=== PATIENT | female | born 1995 | race Caucasian/White ===

== ENCOUNTER 2019-12-13 15:28 | Outpatient (CLI) | payer OTHER, SELFPAY ==
--- NOTE | ~2019-12-13 | US_ITS ---
EXAMINATION: US OB >= 14 weeks Fetus DATE: 12/13/2019 16:21 INDICATION: Second trimester anatomic survey TECHNIQUE: Real-time ultrasound of the pelvis was performed. COMPARISON: None. FINDINGS: There is a single living fetus in breech presentation. The placenta is anterior and 9.6 cm from the i nternal cervical os. heart rate is 139 beats per minute (bpm). cardiac activity and feta l movement are noted. The amniotic fluid index is subjectively normal. The stomach is not clearly demonstrated. The following anatomy was identified as normal: 4 chamber heart 3 vessel cord cord insertion kidneys urinary bladder spine diaphragm ventricles cisterna magna cerebellum The following biometric data were obtained: Biparietal diameter (BPD): 5.72 cm; head circumference (HC): 1.9 cm; abdominal circumference (AC): 19 .1 cm; femur length (FL): 3.9 cm. The femoral length to biparietal diameter ratio is greater than two standard deviations below the clay n. These measurements are otherwise concordant. Estimated weight is 593 g +/- 89 g, which correlates with the 35th percentile when 04/06/2020 i s used as estimated date of delivery. As single measurements, these parameters are each equal to the following estimated gestational ages w ith ranges of +/- 2 standard deviations: BPD: 23 weeks 3 days +/- 1 weeks 5 days. HC: 24 weeks 0 days +/- 1 weeks 3 days. AC: 23 weeks 6 days +/- 2 weeks 0 days. FL: 22 weeks 5 days +/- 1 weeks 6 days. estimated gestational age based solely on measurements from this exam is 23 weeks 4 days +/- 1 weeks 5 days. IMPRESSION: 1. Single living fetus in breech presentation. 2. Estimated weight is 593 g +/- 89 g, which correlates with the 35th percentile when 0 is used as estimated date of delivery. 3. Stomach not well demonstrated. 4. Femoral length to biparietal diameter ratio greater than two standard deviations below the mean. Reviewed, dictated and finalized at location A. IMPRESSION: 1. Single living fetus in breech presentation. 2. Estimated weight is 593 g +/- 89 g, which correlates with the 35th per centile when 04/06/2020 is used as estimated date of delivery. 3. Stomach not well demonstrated. 4. Femoral length to biparietal diameter ratio greater than two standard deviat ions below the mean.
== END 2019-12-13 15:29 | disposition home or self-care (01) ==
LOC: ANHIMG 15:34
PROVIDERS: Visit Provider Obstetrics & Gynecology
DX: Z34.92 Encounter for supervision of normal pregnancy, unspecified, second trimester (principal)
CPT/HCPCS: 76805

== ENCOUNTER 2020-01-30 15:15 | Outpatient (CLI) | payer OTHER, SELFPAY ==
--- NOTE | ~2020-01-30 | US_ITS ---
EXAMINATION: US OB follow up DATE: 01/30/2020 16:17 INDICATION: Catheter for supervision of normal during third trimester. TECHNIQUE: Real-time ultrasound of the pelvis was performed. The interpreting radiologist was not pre sent for the study. COMPARISON: None. FINDINGS: There is a single living fetus in vertex presentation. The placenta is anterior and not low-lying. T here is a 4.8 x 3.0 x 1.2 cm hypoechoic likely subchorionic hematoma along the inferior margin of the placenta. heart rate is 132 beats per minute (bpm). The amniotic fluid index is 16.6 cm, whic h is normal. There is funneling at the internal cervical os with cervical length measuring 2.7 cm. The following biometric data were obtained: BPD: 7.7 cm -> 31 weeks 0 days Head circumference: 28.8 cm -> 31 weeks 4 days Abdominal circumference: 26.4 cm -> 30 weeks 4 days Femur length: 5.5 cm -> 28 weeks 6 days These measurements are concordant. Head circumference to abdominal circumference ratio: 1.09 (normal range 0.97-1.18). Estimated weight: 1517 g (+/-) 228 g. or 3 lbs. 6 oz. (+/-) 8 oz. IMPRESSION: 1. Single living fetus in vertex presentation with heart rate of 132 bpm. 2. 4.8 x 3.0 x 1.2 cm subchorionic hematoma along the inferior margin of the anterior placenta. 3. Normal amniotic fluid index of 16.6 cm. 4. Funneling at the internal cervical os with cervical length measuring 2.7 cm. 5. Estimated weight is 28th percentile by Hadlock criteria when 04/06/2020 is used as the estim ated date of delivery (KENYATTA). Please correlate with clinical information or earlier ultrasounds for mo st accurate KENYATTA. Reviewed, dictated and finalized at location A. IMPRESSION: 1. Single living fetus in vertex presentation with heart rate of 132 bpm. 2. 4.8 x 3.0 x 1.2 cm subchorionic hematoma along the inferior margin of the an terior placenta. 3. Normal amniotic fluid index of 16.6 cm. 4. Funneling at the internal cervical os with cervical length measuring 2.7 cm. 5. Estimated weight is 28th percentile by Hadlock criteria when 0 is used as the estimated date of delivery (KENYATTA). Please correlate with clinic al information or earlier ultrasounds for most accurate KENYATTA.
== END 2020-01-30 15:16 | disposition home or self-care (01) ==
LOC: ANHIMG 15:20
PROVIDERS: Visit Provider Obstetrics & Gynecology
DX: Z34.91 Encounter for supervision of normal pregnancy, unspecified, first trimester (principal); Z3A.00 Weeks of gestation of pregnancy not specified
CPT/HCPCS: 76816

== ENCOUNTER 2020-02-15 18:45 | Observation (INO) | payer OTHER, SELFPAY ==
[2020-02-15 19:43] LABS: Add Urine Microscopic? YES; Appearance Urine Cloudy (Clear); Bacteria Urine 1+ /hpf; Bilirubin Urine Negative (Negative); Color Urine Yellow (Yellow); Glucose Urine UA Negative (Negative); Ketones Urine Trace mg/dL (Negative); Leukocyte Esterase Ur 3+ LEU/UL (Negative); Mucus Urine Few /lpf; Nitrate Urine Negative (Negative); Protein Urine Negative (Negative); Specific Grav Ur 1.011 (1.001-1.035); Squamous Epithelial Cell Urine Many /hpf (Few); Urobilinogen Urine Negative mg/dL (<2.0); WBC Urine 31-50 /hpf
[2020-02-15 19:48] LABS: Blood Urine Negative (Negative)
[2020-02-15 19:54] VITALS: BP 112/66; PULSE 81
[2020-02-15 20:00] VITALS: TEMP 36.8
--- NOTE | 2020-02-15 20:18 | P.HP_ITS ---
H&P: HPI History of Present Illness Date/Time: 02/15/20 20:18 Chief complaint: Contractions Narrative: Ramona Thornton is a 24 yo @ 32.5wks who presented with contractions and yellow/green discharge. She reports feeling 4-5 contractions an hour. However, once placed on the monitor she was found to be nikita q2- 3minutes. She denies vaginal bleeding. ROM + was performed and ruled out rupture of membranes. Cervix was checked and she was found to be 3cm dilated. She reports a h/o UTI's and has some urinary complaints. She has been having regular care with Dr. Rivera in [place], [place]. Her is complicated by: - h/o PTB @ 36wks -- on progesterone 200mcg (procardia 30mg prescribed by primary provider but pt has not started) - h/o mild intermittent asthma -- albuterol PRN - h/o depression on escitalopram (h/o admission in 2011) Review of Systems Constitutional: Constitutional: Denies chills and Denies fatigue Eyes: Eyes: Denies blurry vision Cardiovascular: Cardiovascular: Denies chest pain and Denies palpitations Respiratory: Respiratory: Denies cough and Denies dyspnea Gastrointestinal: Gastrointestinal: Reports abdominal pain, Denies nausea and Denies vomiting Genitourinary: Genitourinary: Reports vaginal discharge Neurologic: Denies headache(s) Meds Home Medications and Allergies Allergies Allergy/AdvReac Type Severity Reaction Status Date / Time No Known Allergies Allergy Unverified 10/06/12 19:37 Vital Signs Vital Signs - 24 hr 02/15/20 19:54 Pulse Rate 81 Blood Pressure 112/66 Exam Const: General: comfortable and no acute distress Resp: Effort & Inspection: normal respiratory effort Cardio: Rate: regular rate : Other: FHT's: 140's/ mod janey/ + accels/ no decels - cat 1 TOCO: ctx's q2min Cervix: 3/ thick/ high Membranes: intact; ROM + negative Presentation: cephalic confirmed on bedside US Skin: General skin exam: normal color Neuro: Speech: normal speech Extrem: General: normal to inspection Psych: Mental Status: mental status grossly normal Affect: normal affect H&P: Results Labs Labs: Urine 02/15/20 Range/Units 19:05 Urine Color Yellow (Yellow) Urine Appearance Cloudy H (Clear) Urine pH 6.0 (5.0-9.0) Ur Specific [place] 1.011 (1.001-1.035) Urine Protein Negative (Negative) mg/dL Urine Glucose (UA) Negative (Negative) mg/dL Assessment and Plan Assessment and plan (1) contractions: Code(s): O47.9 - False labor, unspecified Status: Acute Assessment and Plan: - Cervix 3cm dilated w/ contractions q2min and h/o PTB - heart tones reassuring - [facility] maternal transport team contacted and I spoke with [facility] resident, Dr. Hoffman - Plan to give betamethasone 12mg IM, ampicillin 2g loading, and magnesium sulfate 4g loading - Will transport to [facility] via Maternal Transport team
[2020-02-15] MEDS: BETAMETHASONE SOD PHOS/ACETATE 30 MG/5 ML VIAL 12 MG IM (21:15)
[2020-02-15 21:30] VITALS: BP 125/61; PULSE 80
--- NOTE | 2020-02-15 21:30 | PC.NURSE ---
[facility] transport team here and assumed care of pt at this time.
== END 2020-02-15 21:35 | disposition short-term general hospital (02) ==
PROVIDERS: Admitting Provider Obstetrics & Gynecology; Visit Provider Obstetrics & Gynecology
DX: O60.03 Preterm labor without delivery, third trimester (principal); Z3A.32 32 weeks gestation of pregnancy; O99.52 Diseases of the respiratory system complicating childbirth; J45.909 Unspecified asthma, uncomplicated; O99.344 Other mental disorders complicating childbirth; F32.9 Major depressive disorder, single episode, unspecified
CPT/HCPCS: 81001; 84112; 87086; 87088; 96372; G0378; G0379; J0702